=== PATIENT | male | born 1940 | race Hispanic/Latino ===

== ENCOUNTER → 2018-04-05 | Outpatient (CLI) | payer MEDICARE, OTHER ==
[~2018-04-05] MED LIST: AVODART0.5 MG PO; LEVOTHYROXINE112 MCG PO; METFORMIN HCL500 MG PO; MIRAPEX0.25 MG PO; OSTEO BI-FLEX1 EAC2 PO
--- NOTE | 2018-04-05 11:21 | Diagnostic Imaging Report ---
ADDENDUM #1 ADDENDUM: Reason for exam: gross hematuria/proteinuria Signed by: Dr. Radha Servin MD on 04/07/2018 5:39 PM ORIGINAL REPORT Exam: KUB - 2 views Comparison: None. Findings: Frontal view of the abdomen demonstrates a nonobstructive bowel gas pattern. Bowel gas partially obscures visualization of the right kidney. No evidence of calcifications suspicious for stone. Bilateral pelvic calcifications likely represent phleboliths. Degenerative changes of the visualized spine without acute bony abnormality. Impression: Bilateral pelvic calcifications likely reflect phleboliths. No specific radiographic evidence of urinary stone. Signed by: Dr. Radha Servin MD on 04/05/2018 11:17 AM
--- NOTE | 2018-04-05 11:51 | Diagnostic Imaging Report ---
EXAM: Renal Ultrasound INDICATION: Hematuria COMPARISON: None TECHNIQUE: Transverse and longitudinal images of the kidneys and bladder were obtained. FINDINGS: Right Kidney: Length: Measures 10.5 x 4.7 x 5.2 cm Appearance: Normal echogenicity. Collecting system: No hydronephrosis Stones: None Cyst/Mass: None Left Kidney: Length: Measures 10.6 x 4.8 x 5.1 cm Appearance: Normal echogenicity. Collecting system: No hydronephrosis Stones: None Cyst/Mass: None Bladder: Unremarkable in appearance. Bilateral ureteral jets are present. Prostatomegaly is noted measuring up to 6.4 cm, volume of 75.3 cc. IMPRESSION: No evidence of hydronephrosis or stone. Prostatomegaly. Signed by: Dr. Radha Servin MD on 04/05/2018 11:48 AM
== END ==
LOC: US 10:34
PROVIDERS: ATTEND Urology
DX: R31.0 Gross hematuria (principal); R80.9 Proteinuria, unspecified; N18.9 Chronic kidney disease, unspecified
CPT/HCPCS: 74018; 76770

== ENCOUNTER → 2018-05-12 | Day surgery (SDC) | payer MEDICARE, OTHER ==
--- NOTE | 2018-05-10 17:19 | Diagnostic Imaging Report ---
EXAMINATION: CHEST 2 VIEWS INDICATION: Elevated PSA. Preop. COMPARISON: None FINDINGS: TUBES and LINES: None. LUNGS: Lungs are well inflated. Lungs are clear. There is no evidence of pneumonia or pulmonary edema. PLEURA: No pleural effusion or pneumothorax. HEART AND MEDIASTINUM: The cardiomediastinal silhouette is unremarkable. BONES AND SOFT TISSUES: No acute osseous lesion. Soft tissues are unremarkable. UPPER ABDOMEN: No free air under the diaphragm. IMPRESSION: No acute thoracic abnormality. Signed by: Dr. Golden De La Torre M.D. on 05/10/2018 5:16 PM
[2018-05-10 17:34] LABS: BASOPHILS % 0.4 % (0.0-1.0); EOSINOPHILS # (AUTO) 0.1 (0.0-0.4); EOSINOPHILS % 1.8 % (0.0-6.0); HEMATOCRIT 47.2 % (38.2-49.6); HEMOGLOBIN 15.9 g/dL (14.0-18.0); LYMPHOCYTES # (AUTO) 1.8 (1.0-3.2); LYMPHOCYTES % 24.1 % (18.0-39.1); MEAN CORPUSCULAR HEMOGLOBIN 31.2 pg (28-32); MEAN CORPUSCULAR HGB CONC 33.7 g/dL (31-35); MEAN CORPUSCULAR VOLUME 92.7 fL (81-99); MONOCYTES # (AUTO) 0.6 (0.2-0.8); NEUTROPHILS % 65.4 % (38.7-80.0); PLATELET COUNT 227 x10e3/uL (140-360); RED BLOOD COUNT 5.09 x10e6/uL (4.3-5.7); RED CELL DISTRIBUTION WIDTH 13.1 % (11.7-14.4)
[2018-05-10 17:48] LABS: CALCIUM 9.7 mg/dL (8.4-10.2); CREATININE, SERUM 1.4 mg/dL (0.72-1.25)
[~2018-05-12] MED LIST changes: +BELLADONNA/OPIUM 30 MG SUPP RC ONE; +BUPIVACAINE 0.25% 30ML SDV INJ ONE; +CLINDAMYCIN 300MG 50 ML IV ONE; +DEXAMETHASONE SOD PHOS INJ 4 MG/ML VIAL ONE; +FENTANYL CITRATE/PF 100MCG/2 ML INJ ONE; +GENTAMICIN 80MG/NS 100 ML 200 ML IV ONE; +IOPAMIDOL 610MG/1ML 300 MG/ML VIAL IV ONE; +LIDOCAINE HCL 2% LOCAL INJ 5 ML SDV VIAL INJ ONE; +MIDAZOLAM HCL 2 MG/2 ML VIAL ONE; +NEOMYCIN/POLYMYX/BACITR OINT 0.9 GM PKT ONE; +ONDANSETRON HCL INJ 2MG/ML 2ML 2 MG/ML VIAL ONE; +PIPER-TAZ 3.375 GM 50 ML ONE; +PROPOFOL IV EMULSION 10 MG/ML 20 ML VIAL ONE; +SEVOFLURANE INHAL SOLN 250 ML PEN BTL ONE
--- OUTSIDE RECORDS SUMMARY | 2018-05-12 05:29 | XMS REPORT ---
Author [facility] Address Unknown Phone Unavailable Care Team Providers Care [employer] Name Role Phone TARIQ LANGLEY Unavailable Unavailable Problems This patient has no known problems. Allergies, Adverse Reactions, Alerts This patient has no known allergies or adverse reactions. Medications This patient has no known medications. Encounters Start Date/Time End Date/Time Encounter Type Admission Type Attending [facility] Care Facility Care Department Encounter ID 2016-10-02 00:00:00 2016-10-03 00:00:00 Outpatient [facility] [id number] Results Test Description Test Time Test Comments Text Results Atomic Results Result Comments CHEST 2 VIEWS 2018-05-10 17:15:00 [place] [address] Patient Name: FELIPA KLINE MR #: [id number] : 1940 Age/Sex: 78/M Req #: [id number] Adm Physician: Ordered by: TARIQ LANGLEY MD Report #: [id number] Location: OR Room/Bed: Procedure: [id number] DX/CHEST 2 VIEWS Exam Date: 05/10/18 Exam Time: 1710 REPORT STATUS: Signed EXAMINATION: CHEST 2 VIEWS INDICATION: Elevated PSA. Preop. COMPARISON: None FINDINGS: TUBES and LINES: None. LUNGS: Lungs are well inflated. Lungs are clear. There is no evidence of pneumonia or pulmonary edema. PLEURA: No pleural effusion or pneumothorax. HEART AND MEDIASTINUM: The cardiomediastinal silhouette is unremarkable. BONES AND SOFT TISSUES: No acute osseous lesion. Soft tissues are unremarkable. UPPER ABDOMEN: No free air under the diaphragm. IMPRESSION: No acute thoracic abnormality. Signed by: Dr. Golden De La Torre M.D. on 05/10/2018 5:16 PM Dictated By: GOLDEN DE LA TORRE MD, MD 15 Transcribed By: CARIE on 05/10/181715 COPY TO: TARIQ LANGLEY MD RENAL RETROPERITONEAL COMP 2018-04-05 11:46:00 [place] [address] Patient Name: FELIPA KLINE MR #: [id number] : 1940 Age/Sex: 78/M Req #: [id number] Adm Physician: Ordered by: TARIQ LANGLEY MD Report #: [id number] Location: Room/Bed: Procedure: [id number] US/US RENAL RETROPERITONEAL COMP Exam Date: 04/05/18 Exam Time: 1112 REPORT STATUS: Signed EXAM: Renal Ultrasound INDICATION: Hematur ia COMPARISON: None TECHNIQUE: Transverse and longitudinal images of the kidneys and bladder were obtained. FINDINGS: Right Kidney: Length: Measures 10.5 x 4.7 x 5.2 cm Appearance: Normal echogenicity. Collecting system: No hydronephrosis Stones: None Cyst/Mass: None Left Kidney: Length: Measures 10.6 x 4.8 x 5.1 cm Appearance: Normal echogenicity. Collecting system: No hydronephrosis Stones: None Cyst/Mass: None Bladder: Unremarkable in appearance. Bilateral ureteral jets are present. Prostatomegaly is noted measuring up to 6.4 cm, volume of 75.3 cc. IMPRESSION: No evidence of hydronephrosis or stone. Prostatomegaly. Signed by: Dr. Hakan Tello MD on 04/05/2018 11:48 AM Dictated By: HAKAN TELLO MD 1148 Transcribed By: CARIE on 04/05/18 1148 COPY TO: TARIQ LANGLEY MD ABDOMEN-1VIEW (KUB) 2018-04-05 11:13:00 [place] [address] Patient Name: FELIPA KLINE MR #: [id number] : 1940 Age/Sex: 78/M Req #: [id number] Adm Physician: Ordered by: TARIQ LANGLEY MD Report #: [id number] Location: Room/Bed: Procedure: [id number] DX/ABDOMEN-1VIEW (KUB) Exam Date: 04/05/18 Exam Time: 1100 REPORT STATUS: Signed ADDENDUM #1 ADDENDUM: Reason for exam: gross hematuria/proteinuria Signed by: Dr. Hakan Tello MD on 04/07/2018 5:39 PM ORIGINAL REPORT Exam: KUB - 2 views Comparison: None. Findings: Frontal view of the abdomen demonstrates a nonobstructive bowel gas pattern. Bowel gas partially obscures visualization of the right kidney. No evidence of calcifications suspicious for stone. Bilateral pelvic calcifications likely represent phleboliths. Degenerative changes of the visualized spine without acute bony abnormality. Impression: Bilateral pelvic calcifications likely reflect phleboliths. No specific radiographic evidence of urinary stone. Signed by: Dr. Hakan Tello MD on 04/05/2018 11:17 AM Dictated By: HAKAN TELLO MD [id number] Transcribed By: CARIE on 04/05/18 1114 COPY TO: TARIQ LANGLEY MD
[2018-05-12 11:05] VITALS: BP 162/95
--- NOTE | 2018-05-31 11:33 | Operative Report ---
DATE OF PROCEDURE: 05/12/2018 SURGEON: Jeffrey Castillo MD PREOPERATIVE DIAGNOSES: 1. Phimosis. 2. Hematuria. 3. Elevated PSA. POSTOPERATIVE DIAGNOSES: 1. Phimosis. 2. Hematuria. 3. Elevated PSA. 4. Severe distal ureteral stricture disease. OPERATIONS PERFORMED: 1. Circumcision. 2. Regional nerve block (separate procedure performed for postoperative pain control and prior to actual performance of the surgery, which was done under general anesthesia). 3. Transrectal needle biopsy of the prostate (separate procedure performed for the elevated PSA). 4. Interpretation of prostatic ultrasonography (no radiologist present). 5. Ultrasonographic guidance for needle biopsy of the prostate (no radiologist present). 6. Cystourethroscopy with calibration and dilation of urethral stricture disease (surgery performed for the diagnosis of the stricture). 7. Cystourethroscopy with bilateral ureteral catheterization and retrograde ureteropyelography (sperate procedure performed for the urinary tract infection). 8. Interpretation of retrograde ureteropyelography. 9. Supervision of fluoroscopy, no radiologist was present. ANESTHESIA: General. COMPLICATIONS: None. CLINICAL SUMMARY: Vivek Urbina is a 78-year-old man with the above preoperative diagnoses. He was brought for the above procedures. He is aware of the risks of bleeding, infection, injury to the adjacent structures, need for additional procedures, and elected to proceed. PROCEDURE IN DETAIL: Informed consent was verified. Vivek Urbina was properly identified, taken to the operating room, and placed on the cystoscopy table in the supine position. Anesthesia was uneventfully begun. The patient was then carefully and gently repositioned in the dorsal lithotomy position with all pressure points well padded. Transrectal ultrasonography was performed. Interpretation of prostate ultrasonography. Real-time ultrasonography was performed. Seminal vesicals are unremarkable. Prostate measured 96 mL. There were some calcifications noted at the junction between the transitional zone and peripheral zone. No suspicious hypoechoic lesions were identified. Under ultrasonographic guidance, needle biopsies of the prostate were performed. Two biopsies were present at each of 6 sites for a total of 12 biopsies. Biopsies were differentiated right versus left and base versus mid versus apex. After obtaining all the biopsies, the patient was placed in a supine position. His genitalia were prepared and draped in usual sterile fashion. Marcaine without epinephrine was then utilized to infiltrate subcutaneously and circumferentially the base of the penis as well as in the region of the dorsal penile nerves. This was done for postoperative pain control and not required for the actual performance of the surgery, which was done under general anesthesia. A circumferential incision was then made overlying the woo of the glans penis. The foreskin was fully retracted and secondary incision was made approximately 5 mm away from the woo of the glans penis along the inner preputial skin. A sleeve circumcision was then performed. The foreskin was removed. electrocautery was utilized to achieve hemostasis. The patient's incision was then approximated with 4-0 chromic suture in running fashion. Excellent cosmetic result was achieved. The patient was then carefully and gently repositioned in the dorsal lithotomy position with all pressure points well padded and he was re-draped. The cystoscope sheath could not be placed into the distal urethra. We therefore calibrated the ureteral meatus and distal urethra at 14-South African in size and progressively dilated to 28-South African in size. This allowed us to easily place the cystoscope sheath. The 22.5-South African cystoscope sheath with a visual obturator in place was atraumatically inserted in the patient's urethra. It was guided unremarkable very distal to urethra through some wide stricturing. Urethra that was proximal to the where there was a stricture that was just dilated. The remainder of the urethra was unremarkable. Sphincteric region was normal. The prostate bed was significant for visually obstructing BPH with kissing lateral lobes and a long prostatic urethra. The bladder was significant for grade 2 trabeculation. No suspicious lesions were identified. An 8-South African catheter was used to cannulate the each ureter and retrograde ureteropyelograms were performed. Interpretation of Retrograde Ureteropyelography: Contrast was instilled in a retrograde fashion bilaterally. There were no tumors, no stones, and no diverticula. Unobstructed drainage was observed bilaterally fluoroscopically. The patient's bladder was drained, cystoscope was withdrawn. Sterile dressings were applied to the circumcision incision. The patient was then uneventfully reversed from anesthesia and taken to the recovery room in stable condition. There were no complications during the procedure. He tolerated the procedure well. Sponge, needle, and instrument counts were of course correct x2 at the end of the case. Estimated blood loss was minimal. Exclusive postoperative instructions were given. We will follow the patient up in the office at which point in time, we will plan on uroflowmetry and bladder ultrasonography. Jeffrey MD MICHELLE Castillo/HARMAN /[id number] cc: Pedro Gray MD
== END | disposition home or self-care (01) ==
LOC: OR 05:26
PROVIDERS: ATTEND Urology
DX: N47.1 Phimosis (principal); R97.20 Elevated prostate specific antigen [PSA]; N42.89 Other specified disorders of prostate; N40.1 Benign prostatic hyperplasia with lower urinary tract symptoms; N13.8 Other obstructive and reflux uropathy; N32.89 Other specified disorders of bladder; N35.919 Unspecified urethral stricture, male, unspecified site; N13.5 Crossing vessel and stricture of ureter without hydronephrosis; N41.1 Chronic prostatitis; N47.7 Other inflammatory diseases of prepuce; E03.9 Hypothyroidism, unspecified; E11.9 Type 2 diabetes mellitus without complications; M19.90 Unspecified osteoarthritis, unspecified site; K21.9 Gastro-esophageal reflux disease without esophagitis; I44.4 Left anterior fascicular block; F17.210 Nicotine dependence, cigarettes, uncomplicated; Z01.810 Encounter for preprocedural cardiovascular examination; Z01.812 Encounter for preprocedural laboratory examination; Z01.818 Encounter for other preprocedural examination; Z79.84 Long term (current) use of oral hypoglycemic drugs
CPT/HCPCS: 36415 ×2; 52281; 54161; 55700; 71046; 74420; 76872; 80048; 82948; 85025; 88304; 88305; 88342; 93005; C1758; J1100; J1580; J2001; J2250; J2405; J2543; J2704; Q9967

== ENCOUNTER → 2019-10-06 | Outpatient (CLI) | payer MEDICARE ==
[~2019-10-06] MED LIST changes: -BELLADONNA/OPIUM 30 MG SUPP RC ONE; -BUPIVACAINE 0.25% 30ML SDV INJ ONE; -CLINDAMYCIN 300MG 50 ML IV ONE; -DEXAMETHASONE SOD PHOS INJ 4 MG/ML VIAL ONE; -FENTANYL CITRATE/PF 100MCG/2 ML INJ ONE; -GENTAMICIN 80MG/NS 100 ML 200 ML IV ONE; +IOPAMIDOL 370 MG/ML 200 ML INFUS..BTL INJ ONE; -IOPAMIDOL 610MG/1ML 300 MG/ML VIAL IV ONE; -LIDOCAINE HCL 2% LOCAL INJ 5 ML SDV VIAL INJ ONE; -MIDAZOLAM HCL 2 MG/2 ML VIAL ONE; -NEOMYCIN/POLYMYX/BACITR OINT 0.9 GM PKT ONE; -ONDANSETRON HCL INJ 2MG/ML 2ML 2 MG/ML VIAL ONE; -PIPER-TAZ 3.375 GM 50 ML ONE; -PROPOFOL IV EMULSION 10 MG/ML 20 ML VIAL ONE; +REGADENOSON 0.4 MG/5 ML SYR IV ONE; -SEVOFLURANE INHAL SOLN 250 ML PEN BTL ONE; +SODIUM CHLORIDE 0.9% 100 ML ONE
[2019-10-06 10:19] LABS: BLOOD UREA NITROGEN 11 mg/dL (7-26); BUN/CREATININE RATIO 13 (6-25); CREATININE, SERUM 0.86 mg/dL (0.72-1.25); EST GLOMERULAR FILTRATION RATE > 60 ML/MIN (60-)
--- NOTE | 2019-10-06 13:24 | Diagnostic Imaging Report ---
Abdomen and Pelvis CTA with RUNOFF PROTOCOL WITH IV CONTRAST. INDICATION: Peripheral artery disease COMPARISON: None. TECHNIQUE: Abdomen and pelvis and lower extremities were scanned utilizing a multidetector helical scanner from the lung base to the toes before and after administration of IV contrast. Coronal and sagittal reformations were obtained. 3D post-processing of the images was performed, and the post-processed images were used in interpretation. CTA runoff protocol was performed. IV CONTRAST: 100mL of Isovue 370 ORAL CONTRAST: None RADIATION DOSE: Total DLP: 1466 mGy*cm FINDINGS: VESSELS: There are moderate calcified and noncalcified atherosclerotic plaques in the aorta and its major branches. There is no evidence of a flap within the aorta to suggest a dissection. The celiac artery, superior mesenteric artery, and inferior mesenteric artery are patent. There is a single right renal artery and 2 left renal arteries, all of which are patent. Right lower extremity: The common iliac artery and external iliac artery are widely patent. Mild atherosclerotic calcifications of the common femoral artery and SFA without significant luminal narrowing. The popliteal artery is widely patent. Mild atherosclerotic calcifications of the tibioperoneal trunk without significant associated narrowing. Three vessel runoff to the level of the ankle. Left lower extremity: The common iliac artery and external iliac artery are widely patent. Mild atherosclerotic calcifications of the common femoral artery and SFA without significant luminal narrowing. The popliteal artery is widely patent. Moderate atherosclerotic calcifications of the tibioperoneal trunk with at least moderate associated focal narrowing. Three vessel runoff to the level of the ankle. Moderate atherosclerotic calcifications of the distal posterior tibial artery. NON-VASCULAR: LOWER THORAX: The visualized lungs are clear. There are no pleural effusions. HEPATOBILIARY: No focal hepatic lesions. No biliary ductal dilatation. The gallbladder appears unremarkable. SPLEEN: No splenomegaly. PANCREAS: No focal masses or ductal dilatation. ADRENALS: No adrenal nodules. KIDNEYS/URETERS: No hydronephrosis, stones, or solid mass lesions. PELVIC ORGANS/BLADDER: Enlarged prostate measures up to 5.5 x 4.5 x 5.0 cm (volume estimate 65cc) and indents the posterior bladder. PERITONEUM / RETROPERITONEUM: No free air or fluid. LYMPH NODES: No lymphadenopathy. GI TRACT: Mild diverticulosis. No CT evidence of diverticulitis. No abnormal bowel thickening. No bowel obstruction. Normal appendix. BONES AND SOFT TISSUES: No acute osseous injury. IMPRESSION: Moderate atherosclerotic calcifications of the left tibioperoneal trunk with at least moderate associated focal narrowing. No additional significant luminal narrowing of the aorta, iliac arteries, or arteries of either lower extremity. Three vessel runoff to the level of the ankles. Prostatomegaly. Diverticulosis. Signed by: Abhay Apodaca MD on 10/06/2019 1:21 PM
== END ==
LOC: NM 09:01
PROVIDERS: ATTEND Internal Medicine
DX: I25.10 Atherosclerotic heart disease of native coronary artery without angina pectoris (principal); I73.9 Peripheral vascular disease, unspecified
CPT/HCPCS: 36415; 75635; 78452; 82565; 84520; 93017; A9502; J2785; J7050; Q9967